=== PATIENT | female | born 1950 | race Caucasian/White ===

== ENCOUNTER 2023-02-28 20:52 | Inpatient (IN) | payer MEDICARE, BC ==
[~2023-02-28] VITALS: Ht 160 cm; Wt 51.3 kg
[2023-02-28] MEDS ORDERED: ACETAMINOPHEN 325 MG TABLET PO ONE (21:00)
--- NOTE | 2023-02-28 21:25 | NUR ---
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 AOX4, -LOC, - HEAD INJURY
[2023-02-28] MEDS ORDERED: ACETAMINOPHEN 325 MG TABLET ONE (21:27)
--- NOTE | 2023-02-28 21:38 | NUR ---
BLOOD COLLECTED SENT TO LAB
--- NOTE | 2023-02-28 21:41 | NUR ---
X-RAY AT BEDSIDE
[2023-02-28 21:48] LABS: BASOPHILS # (AUTO) 0.1 K/uL (0.0-0.2); BASOPHILS % (AUTO) 0.6 % (0.0-2.0); EOSINOPHILS % (AUTO) 1.8 % (0.0-6.0); HEMATOCRIT 37 % (33-45); HEMOGLOBIN 12.1 g/dL (11.5-14.8); LYMPHOCYTES % (AUTO) 19.5 % (20.0-44.0); MEAN CORPUSCULAR HGB CONC 33 g/dl (31.0-36.0); MEAN CORPUSCULAR VOLUME 79 fL (82-100); MONOCYTES # (AUTO) 0.8 K/uL (0.1-1.30); MONOCYTES % (AUTO) 7.5 % (2.0-12.0); NEUTROPHILS # (AUTO) 7.3 K/uL (1.8-8.9); NEUTROPHILS % (AUTO) 70.6 % (43.0-81.0); PLATELET COUNT (AUTO) 333 K/uL (150-450); RED BLOOD CELL COUNT(AUTO) 4.71 MIL/uL (4.0-5.2); WHITE BLOOD COUNT (AUTO) 10.4 K/uL (4.3-11.0)
--- NOTE | 2023-02-28 21:49 | NUR ---
COVID ANTIGEN COLLECTED SENT TO LAB
[2023-02-28] MEDS ORDERED: MORPHINE SULFATE INJ 2 MG/ML DISP.SYRIN IV ONE (22:30)
[2023-02-28] MEDS ORDERED: IV NS 0.9% 1,000 ML IV ONE (22:30)
[2023-02-28] MEDS ORDERED: MORPHINE SULFATE INJ 4 MG/ML DISP.SYRIN ONE (22:34)
--- NOTE | 2023-02-28 22:34 | NUR ---
PAGED DR OROZCO AT [phone] FOR ORTHO CONSULT
--- NOTE | 2023-02-28 22:55 | NUR ---
REPAGED DR OROZCO
[2023-02-28 23:00] LABS: CALCIUM, SERUM 9.1 mg/dL (8.5-10.1); CREATININE 0.6 mg/dL (0.6-1.3); POTASSIUM 3.3 mmol/L (3.5-5.1)
[2023-02-28] MEDS ORDERED: MAGNESIUM HYDROXIDE 30 ML UDC PO PRN (23:00)
[2023-02-28] MEDS ORDERED: ACETAMINOPHEN 325 MG TABLET PO PRN (23:00)
--- NOTE | 2023-02-28 23:18 | NUR ---
DR PATEL ON THE PHONE W/ DR OROZCO
--- NOTE | 2023-02-28 23:33 | NUR ---
BED 311-2
--- NOTE | 2023-02-28 23:48 | NUR ---
REPORT GIVEN TO FRANCESCA LOPEZ 3W.
--- NOTE | 2023-03-01 00:09 | NUR ---
IV ON R AC DISLODGED. IV RESTARTED ON L AC 20G PATENT AND INTACT.
--- NOTE | 2023-03-01 00:20 | NUR ---
PT TRANSFERED TO 311-1
[2023-03-01 00:30] VITALS: BP 135/72
--- NOTE | 2023-03-01 00:30 | NUR ---
RN ADMITTING NOTE RECEIVED PATIENT VIA GURNEY. AWAKE, A/O X4. ABLE TO MAKE NEEDS KNOWN. IV ACCESS ON RIGHT AC # 20 NOTED TO BE PATENT AND INTACT INFUSING NS 0.9% @ 75CC/HR ORDERED. PATIENT ON ROOM AIR TOLERATING WELL. NO SIGNS OF SOB, BREATHING EVENLY AND UNLABORED. PATIENT COMPLAINS OF PAIN ON RIGHT HIP SCALE OF 10/10 WHEN MOVED. PATIENT IS ORIENTED TO THE ROOM AND HOW TO USE THE CALL LIGHT. PATIENT VERBALIZES UNDERSTANDING. PATIENT IS CONTINENT BUT WITH PUREWICK ON SINCE PATIENT IS IN PAIN WHEN MOVED. ALL PATIENT BELONGINGS ARE ACCOUNTED FOR. SAFETY MEASURE IN PLACED: BED LOCKED AND IN LOWEST POSITION, SIDED RAILS UP X2, CALL LIGHT AND BEDSIDE TABLE WITHIN PATIENT REACH.
[2023-03-01] MEDS: IV NS 0.9% 1,000 ML IV SCH ×2 (00:47→13:57)
[2023-03-01 01:40] LABS: BILIRUBIN,DIRECT 0.2 mg/dL (0.0-0.2); BILIRUBIN,TOTAL 0.4 mg/dL (0.2-1.0)
[2023-03-01] MEDS: MORPHINE SULFATE INJ 2 MG/ML DISP.SYRIN IV PRN ×3 (06:41→19:47)
--- NOTE | 2023-03-01 06:41 | NUR ---
RN NOTE PATIENT IS COMPLAINING OF RIGHT HIP PAIN SCALE OF 9/10. PAIN MEDICATION IS GIVEN ORDERED.
[2023-03-01] MEDS: ONDANSETRON HCL/PF 4 MG/2 ML VIAL IVP PRN ×3 (06:47→19:46)
--- NOTE | 2023-03-01 06:47 | NUR ---
RN NOTE PATIENT IS COMPLAINING OF NAUSEA AND VOMITED X2. ZOFRAN IS GIVEN ORDERED.
--- NOTE | 2023-03-01 06:54 | NUR ---
RN CLOSING NOTE PATIENT IN BED RESTING, AWAKE, A/O X4. ABLE TO MAKE NEEDS KNOWN. IV ACCESS ON RIGHT AC # 20 NOTED TO BE PATENT AND INTACT INFUSING NS 0.9% @ 75CC/HR ORDERED. PATIENT ON ROOM AIR TOLERATING WELL. NO SIGNS OF SOB, BREATHING EVENLY AND UNLABORED. STILL WITH PAIN ON RIGHT HIP WHEN MOVED. PATIENT IS CONTINENT BUT WITH PUREWICK ON SINCE PATIENT IS IN PAIN WHEN MOVED. ALL DUE MEDICATION IS GIVEN ORDERED. ALL NEEDS ARE MET. MADE SURE PATIENT IS COMFORTABLE AND CLEAN THROUGH OUT THE NIGHT. SAFETY MEASURE IN PLACED: BED LOCKED AND IN LOWEST POSITION, SIDED RAILS UP X2, CALL LIGHT AND BEDSIDE TABLE WITHIN PATIENT REACH. WILL ENDORSE TO NEXT SHIFT NURSE FOR CONTINUITY OF CARE.
--- NOTE | 2023-03-01 07:21 | NUR ---
ms rn received on bed, awake,alert,oriented x4,not in any form of distress, respirations even and unlabored, no sob noted,pt on room air w/ adequate saturation noted. s/p fall w/ right hip fracture noted, repositioned for comfort,denies pain at this time ,will monitor patient.
--- NOTE | 2023-03-01 09:00 | NUR ---
ms rn patient on npo at this time,all needs attended.
--- NOTE | 2023-03-01 09:50 | NUR ---
ms rn was seen by dr. church w/ orders made and carried out. dr. miller called, patient will have surgery in am.
[2023-03-01] MEDS ORDERED: DILT120C93 PO (10:45)
[2023-03-01] MEDS ORDERED: ESCI10TA PO (10:45)
[2023-03-01] MEDS ORDERED: METH10TA7 PO (10:45)
--- NOTE | 2023-03-01 12:00 | NUR ---
ms rn resumed diet at this time, tolerating well.
[2023-03-01 12:01] LABS: BASOPHILS % (AUTO) 0.1 % (0.0-2.0); EOSINOPHILS % (AUTO) 0.1 % (0.0-6.0); HEMATOCRIT 34 % (33-45); HEMOGLOBIN 10.9 g/dL (11.5-14.8); LYMPHOCYTES # (AUTO) 0.9 K/uL (0.8-4.8); LYMPHOCYTES % (AUTO) 8.1 % (20.0-44.0); MEAN CORPUSCULAR HGB CONC 32 g/dl (31.0-36.0); MEAN CORPUSCULAR VOLUME 83 fL (82-100); MONOCYTES % (AUTO) 9.5 % (2.0-12.0); NEUTROPHILS # (AUTO) 9.1 K/uL (1.8-8.9); NEUTROPHILS % (AUTO) 82.2 % (43.0-81.0); PLATELET COUNT (AUTO) 260 K/uL (150-450); RED BLOOD CELL COUNT(AUTO) 4.13 MIL/uL (4.0-5.2); WHITE BLOOD COUNT (AUTO) 11.1 K/uL (4.3-11.0)
[2023-03-01 12:03] LABS: ALANINE AMINOTRANSFERASE 31 U/L (12-78); ALBUMIN 2.7 g/dL (3.4-5.0); ALKALINE PHOSPHATASE 151 U/L (46-116); ASPARTATE AMINOTRANSFERASE 17 U/L (15-37); BILIRUBIN,TOTAL 0.5 mg/dL (0.2-1.0); CALCIUM, SERUM 8.6 mg/dL (8.5-10.1); CARBON DIOXIDE 23 mmol/L (21-32); CHLORIDE 105 mmol/L (98-107); CREATININE 0.4 mg/dL (0.6-1.3); GLUCOSE 92 mg/dL (74-106); MAGNESIUM 2.1 mg/dL (1.8-2.4); PHOSPHORUS 3.3 mg/dL (2.5-4.9); POTASSIUM 3.5 mmol/L (3.5-5.1); SODIUM SERUM 135 mmol/L (136-145); TOTAL PROTEIN, SERUM 6.8 g/dL (6.4-8.2); UREA NITROGEN, BLOOD 10 mg/dL (7-18)
--- NOTE | 2023-03-01 18:42 | NUR ---
MS RN PATIENT ON BED, NO DISTRESS, FAMILY AT BEDSIDE, ANTICIPATING SURGERY IN AM, PATIENT INSTRUCTED TO BE NPO POST MIDNIGHT.
[2023-03-01 20:00] VITALS: BP 147/68
--- NOTE | 2023-03-02 | NUR ---
RN notes Pt is complaining of R hip pain 10/10 on pain scale. administered morphine /iv as ordered for pain. VS is stable. safety precautions is maintained. will continue to monitor.
[2023-03-02] MEDS: IV NS 0.9% 1,000 ML IV SCH (01:04)
[2023-03-02] MEDS: ONDANSETRON HCL/PF 4 MG/2 ML VIAL IVP PRN ×2 (02:02→20:36)
--- NOTE | 2023-03-02 02:06 | NUR ---
RN notes Pt is feeling nausea, no emesis. Administered zofran as ordered. safety precautions is maintained. will continue to monitor.
[2023-03-02 07:02] LABS: BASOPHILS % (AUTO) 0.3 % (0.0-2.0); EOSINOPHILS % (AUTO) 0.7 % (0.0-6.0); HEMATOCRIT 37 % (33-45); HEMOGLOBIN 11.8 g/dL (11.5-14.8); LYMPHOCYTES # (AUTO) 1.2 K/uL (0.8-4.8); LYMPHOCYTES % (AUTO) 11.6 % (20.0-44.0); MEAN CORPUSCULAR HGB CONC 32 g/dl (31.0-36.0); MEAN CORPUSCULAR VOLUME 80 fL (82-100); MONOCYTES # (AUTO) 0.9 K/uL (0.1-1.30); NEUTROPHILS # (AUTO) 7.9 K/uL (1.8-8.9); NEUTROPHILS % (AUTO) 78.4 % (43.0-81.0); PLATELET COUNT (AUTO) 278 K/uL (150-450); RED BLOOD CELL COUNT(AUTO) 4.55 MIL/uL (4.0-5.2); WHITE BLOOD COUNT (AUTO) 10.1 K/uL (4.3-11.0)
[2023-03-02 07:22] LABS: ALANINE AMINOTRANSFERASE 31 U/L (12-78); ALBUMIN 2.8 g/dL (3.4-5.0); ALKALINE PHOSPHATASE 149 U/L (46-116); ASPARTATE AMINOTRANSFERASE 22 U/L (15-37); BILIRUBIN,TOTAL 0.7 mg/dL (0.2-1.0); CALCIUM, SERUM 8.8 mg/dL (8.5-10.1); CARBON DIOXIDE 24 mmol/L (21-32); CHLORIDE 105 mmol/L (98-107); CREATININE 0.5 mg/dL (0.6-1.3); GLUCOSE 66 mg/dL (74-106); MAGNESIUM 2.2 mg/dL (1.8-2.4); POTASSIUM 3.1 mmol/L (3.5-5.1); SODIUM SERUM 139 mmol/L (136-145); TOTAL PROTEIN, SERUM 7.3 g/dL (6.4-8.2); UREA NITROGEN, BLOOD 13 mg/dL (7-18)
[2023-03-02 08:00] VITALS: BP 179/84
[2023-03-02] MEDS: ENOXAPARIN SODIUM 40 MG/0.4 ML DISP.SYRIN SQ SCH (09:00)
--- NOTE | 2023-03-02 09:16 | NUR ---
MS RN RECEIVED ON BED, AWAKE,ALERT,ORIENTED X4,NOT IN ANY FORM OF DISTRESS, RESPIRATIONS EVEN AND UNLABORED,NO SOB NOTED, LUNGS ARE CLEAR,ABDOMEN SOFT,POSITIVE BOWEL SOUNDS,DENIES PAIN AT THIS TIME, PATIENT TO HAVE HIP SURGERY TODAY, READY FOR PROCEDURE, NPO AT THIS TIME,ALL NEEDS ATTENDED.
[2023-03-02] MEDS ORDERED: IV NS 0.9% 1,000 ML IV PRN (09:40)
[2023-03-02] MEDS ORDERED: BUPIVACAINE 0.5 % PF 150 MG/30 ML VIAL ONE (10:53)
[2023-03-02] MEDS ORDERED: VANCOMYCIN 1 GM VIAL ONE (10:54)
[2023-03-02] MEDS ORDERED: POLYMYXIN B SULFATE 500,000 UNITS ONE (10:54)
[2023-03-02] MEDS ORDERED: ROPIVACAINE HCL 0.5% 5 MG/ML 30ML VIAL ONE (11:05)
--- NOTE | 2023-03-02 11:30 | NUR ---
ms rn patient went down for surgery,all needs attended.
[2023-03-02] MEDS ORDERED: ROCURONIUM BROMIDE 50 MG/5 ML ONE (11:51)
[2023-03-02] MEDS ORDERED: FENTANYL PF 100MCG/2ML AMPUL ONE (11:51)
[2023-03-02] MEDS ORDERED: FAMOTIDINE/PF INJ 20 MG/2 ML VIAL IV ONE (11:51)
[2023-03-02] MEDS ORDERED: TRANEXAMIC ACID 1,000 MG/10 ML VIAL ONE (12:57)
[2023-03-02] MEDS ORDERED: ESMOLOL INJ 100 MG/10 ML VIAL IV ONE (13:04)
[2023-03-02] MEDS ORDERED: LABETALOL HCL IV 100MG VIAL ONE (13:14)
[2023-03-02] MEDS: POTASSIUM CL. PREMIX PERIPHER. 50 ML IV SCH ×4 (13:20→17:54)
[2023-03-02] MEDS ORDERED: MEPERIDINE25 MG SYR 25 MG/ML VIAL ONE (14:27)
[2023-03-02] MEDS ORDERED: HYDROCODONE/APAP 10/325MG TABLET PO PRN (15:00)
--- NOTE | 2023-03-02 15:31 | NUR ---
MR RN, PT CAME BACK FROM OR AWAKE AND ALERT X4, S/P RIGHT HIP ORIF BY DR. OROZCO. SURGICAL SITE ON RIGHT HIP WITH DRESSING, DRY AND INTACT. DENIES PAIN AT THIS TIME, WILL MONITOR PT.
[2023-03-02 16:00] VITALS: BP 143/72
[2023-03-02] MEDS: IV D5/0.45 NACL W/20 MEQ KCL 1L IV PRN ×2 (17:54)
--- NOTE | 2023-03-02 19:10 | NUR ---
noc rn opening note Received patient in bed, 2 family member at bed side. patient is a/ox4. no s/s of apparent distress on room air. denies pain at this time. IV D5 1/2 NS with 20meq K+ running at 75mls/hr at this time. purewick in place. safety in place-- bed in lowest, locked position, call light within reach, bed rails up X2, bed alarm in place. patient encouraged with the use of call light. will continue with plan of care for patient.
[2023-03-02] MEDS: MORPHINE SULFATE INJ 2 MG/ML DISP.SYRIN IV PRN ×2 (20:37)
--- NOTE | 2023-03-02 20:43 | NUR ---
jeanie carpenter note- pain management Patient c/o 8/10 pain on her surgical site at this time. Given Morphine 2mg as ordered PRN. will re-assess. Addendum: 03/02/23 at 2049 by BRADLEY SERRATO RN jeanie carpenter note- pain management Patient c/o 8/10 pain on her surgical site at this time. Given Morphine 2mg as ordered PRN. and also Given Zofran 4mg per patient request to counteract Morphine's side effect. will re-assess.
[2023-03-02] MEDS: ANCEF 1 GM/50 ML D5W IV SCH ×2 (21:02)
[2023-03-02] MEDS ORDERED: MAG HYDROX/AL HYDROX/SIMETH 30 ML UDC PO PRN (22:00)
--- NOTE | 2023-03-02 22:02 | NUR ---
noc rn note Patient request for Maalox, per patient it is what she takes at home to help with her bowel. Refused to take Milk of Magnesia already ordered PRN. Messaged Hospitalist Dr. Ballard for an order. Maalox 30ml PO Q6H udc ordered PRN. awaiting for order to be verified.
[2023-03-03] MEDS: MORPHINE SULFATE INJ 2 MG/ML DISP.SYRIN IV PRN ×5 (01:45→18:51)
--- NOTE | 2023-03-03 02:04 | NUR ---
jeanie rn note-- pain management Patient c/o 10/10 throbbing pain on her rt. hip surgery. given Morphine 2mg as ordered PRN. will re-assess.
[2023-03-03] MEDS: ONDANSETRON HCL/PF 4 MG/2 ML VIAL IVP PRN ×3 (04:02→18:51)
--- NOTE | 2023-03-03 04:07 | NUR ---
noc rn note patient c/o nausea, no vomiting. Given Zofran 4mg as ordered PRN. will re-assess and monitor.
[2023-03-03] MEDS: ANCEF 1 GM/50 ML D5W IV SCH ×4 (04:42→14:04)
[2023-03-03 07:11] LABS: HEMATOCRIT 26 % (33-45); HEMOGLOBIN 8.7 g/dL (11.5-14.8); LYMPHOCYTES # (AUTO) 1.5 K/uL (0.8-4.8); LYMPHOCYTES % (AUTO) 13.3 % (20.0-44.0); MEAN CORPUSCULAR HGB CONC 33 g/dl (31.0-36.0); MEAN CORPUSCULAR VOLUME 80 fL (82-100); MONOCYTES # (AUTO) 1.6 K/uL (0.1-1.30); MONOCYTES % (AUTO) 14.3 % (2.0-12.0); NEUTROPHILS # (AUTO) 7.9 K/uL (1.8-8.9); NEUTROPHILS % (AUTO) 72.4 % (43.0-81.0); PLATELET COUNT (AUTO) 270 K/uL (150-450); RED BLOOD CELL COUNT(AUTO) 3.29 MIL/uL (4.0-5.2); WHITE BLOOD COUNT (AUTO) 10.9 K/uL (4.3-11.0)
[2023-03-03 07:25] VITALS: BP 135/70
[2023-03-03 07:32] LABS: ALANINE AMINOTRANSFERASE 28 U/L (12-78); ALBUMIN 2.1 g/dL (3.4-5.0); ALKALINE PHOSPHATASE 104 U/L (46-116); ASPARTATE AMINOTRANSFERASE 14 U/L (15-37); BILIRUBIN,TOTAL 0.5 mg/dL (0.2-1.0); CALCIUM, SERUM 8.1 mg/dL (8.5-10.1); CARBON DIOXIDE 27 mmol/L (21-32); CHLORIDE 106 mmol/L (98-107); CREATININE 0.4 mg/dL (0.6-1.3); GLUCOSE 126 mg/dL (74-106); MAGNESIUM 2.1 mg/dL (1.8-2.4); PHOSPHORUS 2.3 mg/dL (2.5-4.9); POTASSIUM 3.5 mmol/L (3.5-5.1); SODIUM SERUM 140 mmol/L (136-145); TOTAL PROTEIN, SERUM 5.8 g/dL (6.4-8.2); UREA NITROGEN, BLOOD 10 mg/dL (7-18)
--- NOTE | 2023-03-03 07:32 | NUR ---
noc rn closing needs attended. report given to Gamaliel Antonio for continuity of patient care.
--- NOTE | 2023-03-03 07:40 | NUR ---
ms rn received on bed, awake,alert,oriented x4,not in any form of distress, respirations even and unlabored,no sob noted, lungs are clear,abdomen soft,positive bowel sounds,s/p right hip ORIF, w/ dressing dry and intact, denies pain at this time, for pt eval today.
[2023-03-03 08:00] VITALS: BP 149/71
--- NOTE | 2023-03-03 09:00 | NUR ---
ms rn breakfast served,tolerated well.
[2023-03-03] MEDS: ENOXAPARIN SODIUM 40 MG/0.4 ML DISP.SYRIN SQ SCH (10:06)
--- NOTE | 2023-03-03 11:00 | NUR ---
ms rn was seen by pt w/ aru recommendation,tolerated well.
[2023-03-03] MEDS: IV D5/0.45 NACL W/20 MEQ KCL 1L IV PRN ×2 (15:00)
[2023-03-03 16:00] VITALS: BP 145/53
--- NOTE | 2023-03-03 16:30 | NUR ---
ms rn patient on bed, medicated for pain, family at bedside.
[2023-03-03] MEDS ORDERED: K PHOS NEUTRAL 250 MG TABLET PO ONE (17:00)
--- NOTE | 2023-03-03 17:45 | NUR ---
ms rn called aru for report, cannot accept patient at this time, due to short of staff, peggy ed case manager aware.
--- NOTE | 2023-03-03 19:30 | NUR ---
MS RN OPENING NOTE RECEIVED PATIENT FROM AM NURSE; PATIENT IN BED, WITH RELATIVES AT BEDSIDE, A/O X 4, ABLE TO MAKE NEEDS KNOWN; STABLE ON ROOM AIR, BREATHING EVENLY AND NO S/S OF DISTRESS NOTED; WITH IV ACCESS AT LEFT HAND, SALINE LOCK; ENCOURAGED VERBALIZATION OF NEEDS; SAFETY MEASURES IMPLEMENTED, BED LOCKED IN LOWEST POSITION, SIDE RAILS UP X 2, CALL LIGHT AND TABLE WITHIN REACH; WILL CONTINUE TO MONITOR THROUGHOUT SHIFT
[2023-03-03 20:00] VITALS: BP 128/53
[2023-03-04] MEDS: ONDANSETRON HCL/PF 4 MG/2 ML VIAL IVP PRN (01:29)
[2023-03-04] MEDS: MORPHINE SULFATE INJ 2 MG/ML DISP.SYRIN IV PRN ×2 (01:29→12:30)
--- NOTE | 2023-03-04 01:45 | NUR ---
MS RN NOTE PATIENT COMPLAINED OF PAIN AND ASKED FOR MORPHINE WELL ZOFRAN TO KEEP HER FROM FEELING NAUSEOUS; ADMINISTERED MORPHINE AND ZOFRAN PRN ORDERED; PATIENT TOLERATED WELL
[2023-03-04] MEDS: IV D5/0.45 NACL W/20 MEQ KCL 1L IV PRN ×2 (04:01)
--- NOTE | 2023-03-04 06:59 | NUR ---
MS RN CLOSING NOTE PATIENT AWAKE IN BED, A/O X 4, ABLE TO MAKE NEEDS KNOWN; STABLE ON ROOM AIR, BREATHING EVENLY AND NO S/S OF DISTRESS NOTED; WITH IV ACCESS AT LEFT HAND G#22 RUNNING WITH D5 1/2 NS WITH 20 MEQ KCL AT 75 ML/HR; ADMINISTERED MEDICATIONS PRESCRIBED; PATIENT'S NEEDS ATTENDED; MONITORED PATIENT ACCORDINGLY; SAFETY MEASURES IMPLEMENTED, BED LOCKED IN LOWEST POSITION, SIDE RAILS UP X 2, CALL LIGHT AND TABLE WITHIN REACH; WILL ENDORSE TO AM NURSE FOR NINA.
[2023-03-04 07:00] VITALS: BP 136/54
--- NOTE | 2023-03-04 07:25 | NUR ---
MS RN OPENING NOTE RECEIVED PATIENT AWAKE IN BED; A/O X 4, ABLE TO MAKE NEEDS KNOWN; NO SIGNS OF ACUTE DISTRESS NOTED. ON ROOM AIR, TOLERATING WELL. NO SOB NOTED, BREATHING EVEN AND UNLABORED. NOTED WITH IV ACCESS AT LEFT HAND G#22 RUNNING WITH D5 1/2 NS WITH 20 MEQ KCL AT 75 ML/HR. PATIENT DENIES ANY PAIN AT THIS TIME. SAFETY MEASURES IN PLACE; BED IN LOW AND LOCKED POSITION; SIDE RAILS UP X 2, CALL LIGHT AND TABLE WITHIN REACH; WILL ENDORSE TO AM NURSE FOR NINA. Addendum: 03/04/23 at 0756 by SAUD SALVADOR RN WILL CONTINUE WITH PLAN OF CARE.
[2023-03-04] MEDS: ENOXAPARIN SODIUM 40 MG/0.4 ML DISP.SYRIN SQ SCH (08:54)
--- NOTE | 2023-03-04 13:03 | NUR ---
MS ZMT OPERATOR NOTES DISCHARGED PATIENT ORDERED. PICKED UP BY 2 EMT AT [id number] VIA GURNEY. PATIENT IS STABLE. [facility] ROOM 307. BELONGINGS ENDORSED TO PATIENT AND FAMILY. IV LINE REMOVED. ENDORSED TO FRANCESCA [facility]. ENDORSED ACCORDINGLY.
== END 2023-03-04 13:05 | DRG 481 ==
LOC: ER 20:54 → MED 23:35
PROC: 0QS606Z Reposition Right Upper Femur with Intramedullary Internal Fixation Device, Open Approach (ICD-10-PCS; principal; 2023-03-02)
DX: S72.141A Displaced intertrochanteric fracture of right femur, initial encounter for closed fracture (principal); E87.1 Hypo-osmolality and hyponatremia; W01.0XXA Fall on same level from slipping, tripping and stumbling without subsequent striking against object, initial encounter; Z85.3 Personal history of malignant neoplasm of breast; Y92.22 Religious institution as the place of occurrence of the external cause; E03.9 Hypothyroidism, unspecified; E87.6 Hypokalemia; D72.829 Elevated white blood cell count, unspecified; E88.09 Other disorders of plasma-protein metabolism, not elsewhere classified; I10 Essential (primary) hypertension; Z20.822 Contact with and (suspected) exposure to COVID-19; Z79.899 Other long term (current) drug therapy
CPT/HCPCS: 36415; 71045-TC; 72170-TC; 73501; 73552; 80048-TC; 80053-TC; 82247-TC; 82248-TC; 82962-TC; 83605-TC; 83735-TC; 84100-TC; 85025-TC; 85730-TC; 86850-TC; 87081-TC; 93307-TC; 97110-TC; 97112-TC; 97530-TC; A4223; A6209; C1713; C9803; G0378; J0690; J1100; J1650; J2175; J2270; J2370; J2405; J2704; J2765; J2795; J3010; J3370; J3480; J3490; J7030; J7050; J7060